=== PATIENT | female | born 1955 | race Caucasian/White ===

== ENCOUNTER 2017-12-21 08:26 | Day surgery (SDC) | payer OTHER ==
[2017-12-21] MEDS ORDERED: PROPOFOL 20 ML (10:13)
[2017-12-21] MEDS ORDERED: GLYCOPYRROLATE 0.4 MG INJ (10:14)
[2017-12-21] MEDS ORDERED: ROCURONIUM 50 MG INJ (10:14)
[2017-12-21] MEDS ORDERED: MIDAZOLAM 1 MG/ML 2 ML INJ (10:14)
[2017-12-21] MEDS ORDERED: FENTAnyl 50 MCG/ML VIAL (10:14)
[2017-12-21] MEDS ORDERED: LIDOCAINE 2% (SDV) 5 ML INJ (10:14)
[2017-12-21] MEDS ORDERED: NEOSTIGMINE 3 MG/3 ML SYRINGE (10:14)
[2017-12-21] MEDS ORDERED: DEXAMETHASONE 4 MG/ML 1 ML INJ (10:15)
[2017-12-21] MEDS ORDERED: ONDANSETRON 4 MG INJ (10:15)
[2017-12-21] MEDS: POLYMYXIN/BACITRACIN 1L IRRIG (11:04)
[2017-12-21] MEDS: LIDOCAINE 1% (MPF) 30 ML INJ (11:04)
[2017-12-21] MEDS: BUPIVACAINE 0.5% (SDV) 30 ML INJ (11:04)
[2017-12-21] MEDS ORDERED: BUPIVACAINE 0.5%/EPI (SDV) 30 ML INJ (11:08)
[2017-12-21] MEDS ORDERED: NALOXONE (0.4 MG/ML) INJ (11:26)
[2017-12-21] MEDS ORDERED: BACITRACIN/POLYMYXIN 28.35 GM OINT TOP (11:27)
[2017-12-21] MEDS ORDERED: NALOXONE (0.4 MG/ML) INJ IV (12:00)
[2017-12-21] MEDS ORDERED: HYDROmorphONE 1 MG/5 ML IV SYRINGE IV ×3 (12:01→12:30)
[2017-12-21] MEDS: HYDROmorphONE 1 MG/5 ML IV SYRINGE IV (12:18)
[2017-12-21] MEDS ORDERED: FENTAnyl 50 MCG/ML VIAL IV ×3 (12:30)
[2017-12-21] MEDS ORDERED: HYDROCODONE/APAP (5/325) TAB PO (13:30)
[2017-12-21] MEDS: HYDROCODONE/APAP (5/325) TAB PO (13:32)
== END 2017-12-21 14:11 | disposition home or self-care (01) ==
LOC: SDS 08:26
DX: M65.332 Trigger finger, left middle finger (principal); K21.9 Gastro-esophageal reflux disease without esophagitis; E03.9 Hypothyroidism, unspecified
CPT/HCPCS: 26055

== ENCOUNTER 2018-05-04 12:31 | Day surgery (SDC) | payer OTHER ==
[~2018-05-04 12:31] MED LIST: PROPOFOL 200 MG INJ
[2018-05-04] MEDS ORDERED: PROPOFOL 60 ML (16:36)
== END 2018-05-04 18:00 | disposition home or self-care (01) ==
LOC: GIL 12:31
DX: Z12.11 Encounter for screening for malignant neoplasm of colon (principal); D12.2 Benign neoplasm of ascending colon; K64.8 Other hemorrhoids; D13.1 Benign neoplasm of stomach; K29.00 Acute gastritis without bleeding
CPT/HCPCS: 43239; 88305